=== PATIENT | female | born 1970 | race American Indian/Alaskan Native ===

== ENCOUNTER 2020-02-28 23:20 | Emergency (ER) | payer SELFPAY ==
--- NOTE | 2020-02-29 01:20 | XRay Report ---
CERVICAL SPINE 3 VIEWS INDICATION / CLINICAL INFORMATION: neck pain COMPARISON: None available. FINDINGS: BONES / JOINT(S): No acute fracture or subluxation. Mild/moderate DDD localized C5-C6. SOFT TISSUES: No significant abnormality. ADDITIONAL FINDINGS: None. Signer Name: Louie Miller MD Signed: 02/29/2020 1:16 AM Workstation Name: [id number]
--- NOTE | 2020-02-29 01:55 | XRay Report ---
CHEST 1 VIEW INDICATION: chestpain. COMPARISON: None. FINDINGS: Support devices: None. Heart: Within normal limits. Lungs/Pleura: No acute air space or interstitial disease. Additional findings: None. IMPRESSION: No acute abnormality. Signer Name: Louie Miller MD Signed: 02/29/2020 1:51 AM Workstation Name: [id number]
[2020-02-29 02:37] LABS: INR 0.93 (0.87-1.13)
[2020-02-29 02:45] LABS: Alanine Aminotransferase 8 units/L (7-56); Albumin 3.7 g/dL (3.9-5); Blood Urea Nitrogen 15 mg/dL (7-17); Calcium 8.9 mg/dL (8.4-10.2); Hemolysis Index 2
[2020-02-29 02:46] LABS: BUN/Creatinine Ratio 21
[2020-02-29 02:51] LABS: Basophils % (Auto) 0.3 % (0.0-1.8); Eosinophils # (Auto) 0.1 K/mm3 (0.0-0.4); Eosinophils % (Auto) 0.4 % (0.0-4.3); Hematocrit 30.4 % (30.3-42.9); Hemoglobin 9.4 gm/dl (10.1-14.3); Lymphocytes # (Auto) 1.6 K/mm3 (1.2-5.4); Lymphocytes % (Auto) 10.4 % (13.4-35.0); Mean Corpuscular HGB Conc 31 % (30-34); Mean Corpuscular Volume 77 fl (79-97); Monocytes # (Auto) 0.8 K/mm3 (0.0-0.8); Monocytes % (Auto) 5.2 % (0.0-7.3); Platelet Count 434 K/mm3 (140-440); Red Blood Count 3.96 M/mm3 (3.65-5.03); Red Cell Distribution Width 15.6 % (13.2-15.2)
[2020-02-29] MEDS ORDERED: ONDANSETRON 4 MG/2 ML INJ IV ONE (06:19)
[2020-02-29] MEDS ORDERED: MORPHINE 4 MG/1 ML INJ IV ONE (06:19)
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
--- NOTE | 2020-02-29 07:01 | Cat Scan Report ---
CT abdomen pelvis w con INDICATION: abdominal pain. TECHNIQUE: All CT scans at this location are performed using the following dose modulation technique: Automated exposure control. CONTRAST: Omnipaque 300, 100 cc IV injection. COMPARISON: None available. CT ABDOMEN: The parenchymal organs are unremarkable in appearance. Negative for abdominal mass, fluid or inflammation. The bowel is not dilated or thickened. CT PELVIS: Large fibroid uterus. Negative for mass, fluid or inflammation. The appendix is normal. IMPRESSION: Large, fibroid uterus. Signer Name: Louie Miller MD Signed: 02/29/2020 6:57 AM Workstation Name: [id number]
[2020-02-29 08:28] VITALS: BP 122/82
== END 2020-02-29 08:51 | disposition home or self-care (01) ==
LOC: ED 23:20
DX: D25.9 Leiomyoma of uterus, unspecified (principal); I10 Essential (primary) hypertension; V49.49XA Driver injured in collision with other motor vehicles in traffic accident, initial encounter; Y93.89 Activity, other specified; Y92.488 Other paved roadways as the place of occurrence of the external cause; Y99.8 Other external cause status
CPT/HCPCS: 36415; 71045; 72040; 74177; 80053; 84484; 85025; 85610; 93005; 96374; 96375; 99285; J2270; J2405; Q9967